=== PATIENT | female | born 1990 | race Caucasian/White ===

== ENCOUNTER 2023-11-21 05:37 | Emergency (ER) | payer OTHER ==
[~2023-11-21] VITALS: Ht 160 cm; Wt 68.0 kg
[2023-11-21] MEDS ORDERED: FLUT1DIS2 INH (05:46)
[2023-11-21] MEDS ORDERED: CEPH500 PO (06:08)
== END 2023-11-21 06:35 | disposition home or self-care (01) ==
LOC: ER 05:37
DX: L02.31 Cutaneous abscess of buttock (principal); Z79.51 Long term (current) use of inhaled steroids
CPT/HCPCS: 99283

== ENCOUNTER 2024-07-29 01:11 | Emergency (ER) | payer OTHER ==
[~2024-07-29] VITALS: Ht 162.6 cm; Wt 63.5 kg
[~2024-07-29 01:11] MED LIST: CEPH500 PO; FLUT1DIS2 INH
[2024-07-29] MEDS ORDERED: Ketorolac Tromethamine 15mg Vial IM ONE (04:05)
== END 2024-07-29 05:26 | disposition home or self-care (01) ==
LOC: ER 01:11
DX: S89.92XA Unspecified injury of left lower leg, initial encounter (principal); Y04.2XXA Assault by strike against or bumped into by another person, initial encounter; Z79.899 Other long term (current) drug therapy
CPT/HCPCS: 73562-LT; 96372; 99283-25; J1885